=== PATIENT | female | born 1955 | race Caucasian/White ===

== ENCOUNTER 2018-10-13 14:11 | Emergency (ER) | payer MEDICAID ==
[~2018-10-13] VITALS: Ht 160 cm; Wt 70.3 kg
[~2018-10-13 14:11] MED LIST: ANT12.5 PO
[2018-10-13 14:44] VITALS: Ht 160 cm; Wt 70.3 kg
[2018-10-13 16:45] VITALS: BP 151/96
== END 2018-10-13 16:45 | disposition home or self-care (01) ==
LOC: ED 14:11
DX: J06.9 Acute upper respiratory infection, unspecified (principal); N39.0 Urinary tract infection, site not specified; H92.09 Otalgia, unspecified ear; Z88.0 Allergy status to penicillin
CPT/HCPCS: J1885; Q0162

== ENCOUNTER 2018-10-30 15:36 | Emergency (ER) | payer MEDICAID ==
[~2018-10-30] VITALS: Ht 157.5 cm; Wt 69.9 kg
[2018-10-30 15:41] VITALS: Ht 157.5 cm; Wt 69.9 kg
[2018-10-30 21:07] VITALS: BP 148/99
== END 2018-10-30 21:07 | disposition home or self-care (01) ==
LOC: ED 15:36
DX: J98.01 Acute bronchospasm (principal); R07.89 Other chest pain; Z98.82 Breast implant status; Z98.890 Other specified postprocedural states; Z88.0 Allergy status to penicillin
CPT/HCPCS: 87804; J2930; J7613; J7644

== ENCOUNTER 2019-01-22 21:54 | Inpatient (IN) | payer MEDICAID ==
[~2019-01-22] VITALS: Ht 162.6 cm; Wt 69.9 kg
[2019-01-22 21:59] VITALS: Ht 162.6 cm; Wt 69.9 kg
--- NOTE | 2019-01-22 22:02 | NUR ---
ALERT, AWAKE, ORIENTED, NO FACIAL DROOP OR ANY NEUROLOGICAL DEFICITS NOTED. PT SENT TO LOBBY. NO S/S OF DISTRESS. RESPIRATIONS EVEN AND UNLABORED
--- NOTE | 2019-01-22 23:05 | NUR ---
PT PRESENTS TO THE ED WITH SON AT BEDSIDE WITH C/C OF R SIDED NUMBNESS TO ARM FACE AND LIPS X 1WEEKS WITH MILD HEADACHES PEERLA. POLYSTYRENE BEAD MOLDER ARE EVEN, NO NEUROLOGICAL DEFICIT NOTED. NO FACIAL DROOP, GAIT IS STEADY. NAD RESPIRATIONS E/U. SON AND PT DENY AND MEMORY OR SPEECH DEFICIT. PT PLACED ON MONITOR WILL AWAIT FOR MSE AND CONTINUE TO MONITOR
--- NOTE | 2019-01-23 | NUR ---
PT OFF THE FLOOR FOR CT SCAN.
--- NOTE | 2019-01-23 00:27 | NUR ---
NAD, RESPIRATIONS E/U. EDUCATED ABOUT URINE SAMPLE NEEDED. PT VERALIZED UNDERSTANDING AND GIVEN WARM BLANKET FOR COMFORT
[2019-01-23 00:34] LABS: BASOPHIL % 0.3 % (0-2); PLATELET COUNT 220 x10^3mcL (130-400)
[2019-01-23 00:35] LABS: RED CELL DISTRIBUTION WIDTH 14.6 % (11.5-14.5)
[2019-01-23 00:55] LABS: CALCIUM 8.8 mg/dL (8.5-10.1); CARBON DIOXIDE 25.3 mmol/L (21-32); CHLORIDE SERUM 109 mmol/L (98-107); CREATININE SERUM 0.7 mg/dL (0.6-1.0); GFR1 > 60 mL/min; GLUCOSE SERUM 157 mg/dL (74-106); POTASSIUM SERUM 3.5 mmol/L (3.5-5.1); SODIUM SERUM 144 mmol/L (136-145)
[2019-01-23 00:59] LABS: ALBUMIN 3.5 g/dL (3.4-5.0); ALKALINE PHOSPHATASE 100 U/L (46-116); ALT/SGPT 88 U/L (14-59); AST/SGOT 49 U/L (15-37); BILIRUBIN TOTAL 0.4 mg/dL (0.20-1.00); TOTAL PROTEIN, SERUM 7.7 g/dL (6.4-8.2)
[2019-01-23 02:09] LABS: MAGNESIUM 2.1 mg/dL (1.8-2.4); PHOSPHOROUS 3.4 mg/dL (2.5-4.9)
[2019-01-23 02:19] LABS: FREE T4 1.14 ng/dL (0.76-1.46); FREE THYROXINE INDEX 3.1 ug/dL (1.4-4.5)
[2019-01-23 02:24] LABS: CHOLESTEROL/HDL RATIO 2.9
[2019-01-23 02:27] LABS: T3 TOTAL 1.27 ng/mL
--- NOTE | 2019-01-23 04:56 | NUR ---
PT LYING ON BACK NAD RESPIATIONS E/U.
[2019-01-23 05:58] LABS: BASOPHIL % 0.3 % (0-2); PLATELET COUNT 216 x10^3mcL (130-400)
[2019-01-23 05:59] LABS: RED CELL DISTRIBUTION WIDTH 14.7 % (11.5-14.5)
[2019-01-23 06:22] LABS: CALCIUM 8.4 mg/dL (8.5-10.1); CARBON DIOXIDE 28.3 mmol/L (21-32); CHLORIDE SERUM 109 mmol/L (98-107); CREATININE SERUM 0.7 mg/dL (0.6-1.0); GFR1 > 60 mL/min; GLUCOSE SERUM 121 mg/dL (74-106); POTASSIUM SERUM 3.7 mmol/L (3.5-5.1); SODIUM SERUM 143 mmol/L (136-145)
--- NOTE | 2019-01-23 07:17 | NUR ---
PT EXPRESSED CONCERN ABOUT REASON FOR ADMITANCE, CAME TO [facility] WITH PT PT EXPRESSED WISH TO RETURN HOME IF LABS WERE NEGATIVE. INFORMED OF NEGATIVE CT. PT EXPRESSED CONTINUED CONFUSION ABOUT ADMITANCE. INFORMED MD THORPE.
--- NOTE | 2019-01-23 07:20 | NUR ---
DR THORPE AT BEDSIDE FOR PT CLAIFICATION
[2019-01-23 07:44] LABS: microscopic required? NO
--- NOTE | 2019-01-23 07:55 | NUR ---
REPORT GIVEN TO VIKA TO ASSUME CARE OF PT.
[2019-01-23 08:29] LABS: UA SPECIFIC GRAVITY >=1.030 (1.005-1.035); urine erythrocyte NEGATIVE (NEGATIVE)
[2019-01-23 08:34] LABS: AMPHETAMINE QUAL UR NONE DETECTED (See below)
[2019-01-23 08:36] VITALS: BP 112/69
--- NOTE | 2019-01-23 09:45 | NUR ---
PATIENT IN BED, FAMILY AT BEDSIDE. DR FERGUSON & TEAM IN TO SEE PATIENT, STATES THAT POST CAROTID US & ECHOCARDIOGRAM, IF NEGATIVE, PATIENT MAY BE DISCHARGED TODAY. PATIENT VERBALLIZES UNDERSTANDING, FAMILY AWARE. CALL LIGHT IN REACH, WILL CONTINUE NEURO CHECKS.
[2019-01-23 11:09] VITALS: BP 147/96
--- NOTE | 2019-01-23 12:54 | NUR ---
PATIENT IN BED, FAMILY AT BEDSIDE. NO NUMBNESS OR TINGLING IN FACE, SMILE SYMMETRICAL. PUPILS PERRLA. EATING LUNCH TRAY AT THIS TIME, TOLERATING. CALL LIGHT IN REACH.
[2019-01-23] MEDS ORDERED: ASPIR 8181 MG PO (13:44)
[2019-01-23] MEDS ORDERED: LIPI20 PO (13:48)
[2019-01-23 14:22] VITALS: BP 147/96
--- NOTE | 2019-01-23 14:27 | NUR ---
PATIENT IN BED. NO COMPLAINTS OF PAIN. NEURO CHECK, SYMMETRICAL SMILE & FROWN. NO FACIAL DROOPING SEEN. CALL LIGHT IN REACH. ECHOCARDIOGRAM STILL PENDING.
--- NOTE | 2019-01-23 15:17 | NUR ---
PATIENT IN BED. SON AT BEDSIDE, DISCHARGE INSTRUCTIONS GIVEN TO PATIENT, PATIENT VERBALIZES UNDERSTANDING. PACKET GIVEN TO PATIENT & ALL QUESTIONS ANSWERED. PATIENT W BELONGINGS. IV CATHETER REMOVED & INTACT. TELEMETRY UNIT RETURNED TO [facility]. PATIENT & FAMILY ESCORTED DOWNSTAIRS VIA WHEELCHAIR W [facility].
--- NOTE | 2019-01-24 07:47 | NUR ---
ECHOCARDIOGRAM NOT DONE-DISCHARGED
== END 2019-01-23 15:21 | disposition home or self-care (01) | DRG 47 ==
LOC: ED 21:54 → DU 01-23 01:20
PROVIDERS: Emergency Medicine; ADMIT Family Medicine
DX: G45.9 Transient cerebral ischemic attack, unspecified (principal); N17.0 Acute kidney failure with tubular necrosis; E11.9 Type 2 diabetes mellitus without complications; R51 Headache; R20.0 Anesthesia of skin; E03.9 Hypothyroidism, unspecified; Z68.26 Body mass index [BMI] 26.0-26.9, adult
CPT/HCPCS: 84439; J1885; J2270; J2765; J7030; Q0092

== ENCOUNTER 2019-07-01 15:19 | Emergency (ER) | payer OTHER ==
[~2019-07-01] VITALS: Ht 160 cm; Wt 68.0 kg
[~2019-07-01 15:19] MED LIST changes: +ASPIR 8181 MG PO; +LIPI20 PO
[2019-07-01 15:42] VITALS: BP 130/81; Ht 160 cm; Wt 68.0 kg
== END 2019-07-01 18:26 | disposition home or self-care (01) ==
LOC: ED 15:19
DX: R07.89 Other chest pain (principal); N64.4 Mastodynia; Z88.0 Allergy status to penicillin; W18.30XA Fall on same level, unspecified, initial encounter; Y93.89 Activity, other specified; Y92.89 Other specified places as the place of occurrence of the external cause; Y99.8 Other external cause status
CPT/HCPCS: J1885

== ENCOUNTER 2020-03-27 19:11 | Emergency (ER) | payer MEDICAID ==
[~2020-03-27] VITALS: Ht 160 cm; Wt 68.0 kg
[2020-03-27 19:20] VITALS: Ht 160 cm; Wt 68.0 kg
[2020-03-27 23:54] VITALS: BP 155/76
== END 2020-03-27 23:54 | disposition home or self-care (01) ==
LOC: ED 19:11
DX: F45.8 Other somatoform disorders (principal); F43.0 Acute stress reaction; Z88.0 Allergy status to penicillin; Z98.890 Other specified postprocedural states
CPT/HCPCS: 82962

== ENCOUNTER 2020-09-10 15:38 | Emergency (ER) | payer MEDICAID ==
[~2020-09-10] VITALS: Ht 157.5 cm; Wt 67.1 kg
[~2020-09-10 15:38] MED LIST changes: +EASY COMFORT ALCO70% TOP; +TRUE METRIX GL1 EACH MC; +[UNRECOGNIZED DRUG - SUPPLY] MC; +[UNRECOGNIZED DRUG - SUPPLY] MC
[2020-09-10 15:42] VITALS: Ht 157.5 cm; Wt 67.1 kg
[2020-09-10 22:28] VITALS: BP 118/78
== END 2020-09-10 22:28 | disposition home or self-care (01) ==
LOC: ED 15:38
DX: S20.211A Contusion of right front wall of thorax, initial encounter (principal); I10 Essential (primary) hypertension; E11.9 Type 2 diabetes mellitus without complications; Z88.0 Allergy status to penicillin; Z98.890 Other specified postprocedural states; Z41.1 Encounter for cosmetic surgery; W18.09XA Striking against other object with subsequent fall, initial encounter; Y93.89 Activity, other specified; Y92.89 Other specified places as the place of occurrence of the external cause; Y99.8 Other external cause status
CPT/HCPCS: J1885